=== PATIENT | male | born 1970 | race Caucasian/White ===

== ENCOUNTER 2021-06-04 12:54 | Inpatient (IN) | payer OTHER ==
[~2021-06-04] VITALS: Ht 172.7 cm; Wt 113.4 kg
[2021-06-04 14:09] LABS: HEMOGLOBIN 16.1 gm/dl (14.0-17.5); RED BLOOD COUNT 5.4 M/UL (4.20-5.50); WHITE BLOOD COUNT 6.8 K/UL (4.5-11.0)
[2021-06-04 14:37] LABS: BUN/CREATININE RATIO 21 (0-10)
[2021-06-04] MEDS ORDERED: FARXIGA10 MG PO (16:19)
[2021-06-04] MEDS ORDERED: TRADJENTA5 MG PO (16:19)
[2021-06-04] MEDS ORDERED: GLIPIZIDE10 MG PO (16:20)
[2021-06-04] MEDS ORDERED: ATENOLOL25 MG PO (16:20)
[2021-06-04] MEDS ORDERED: LOSARTAN POTASS50 MG PO (16:20)
[2021-06-04] MEDS ORDERED: METFORMIN HCL1000 MG PO (16:20)
[2021-06-04] MEDS ORDERED: ATORVASTATIN CA40 MG PO (16:20)
[2021-06-04] MEDS ORDERED: ALLERGY RELIEF25 M1 PO (16:21)
[2021-06-04] MEDS ORDERED: CHLORTHALIDONE25 MG PO (16:21)
[2021-06-04] MEDS ORDERED: VITAMIN E180 MG PO (16:22)
[2021-06-04] MEDS ORDERED: APPLE CIDER VI600 MG PO (16:23)
[2021-06-04] MEDS ORDERED: GINSENG100 MG PO (16:23)
[2021-06-05 05:31] LABS: HEMOGLOBIN 14.7 gm/dl (14.0-17.5); RED BLOOD COUNT 4.99 M/UL (4.20-5.50)
[2021-06-05 05:54] LABS: BUN/CREATININE RATIO 27 (0-10)
--- NOTE | 2021-06-05 22:27 | NUR ---
MADE CALL TO DR. HAINES ABOUT BLOOD SUGAR OF 404, NO ANSWER. WILL CALL AGAIN IN 10 MINUTES.
[2021-06-06 06:17] LABS: HEMOGLOBIN 14.5 gm/dl (14.0-17.5); RED BLOOD COUNT 4.9 M/UL (4.20-5.50); WHITE BLOOD COUNT 9.2 K/UL (4.5-11.0)
[2021-06-06 06:46] LABS: BUN/CREATININE RATIO 43 (0-10)
[2021-06-07 03:46] LABS: RED BLOOD COUNT 4.85 M/UL (4.20-5.50); WHITE BLOOD COUNT 11.5 K/UL (4.5-11.0)
[2021-06-07 04:32] LABS: BUN/CREATININE RATIO 29 (0-10)
--- NOTE | 2021-06-07 11:36 | NUR ---
PATIENT O2 SAT 88% ON ROOM AIR.
[2021-06-08 04:43] LABS: HEMOGLOBIN 13.4 gm/dl (14.0-17.5); RED BLOOD COUNT 4.72 M/UL (4.20-5.50); WHITE BLOOD COUNT 12.8 K/UL (4.5-11.0)
[2021-06-08 05:07] LABS: BUN/CREATININE RATIO 27 (0-10)
[2021-06-08] MEDS ORDERED: AUGMENTIN 875-1 EACH PO (09:36)
[2021-06-08] MEDS ORDERED: PROTONIX 40 MG40 M1 PO (09:36)
[2021-06-08] MEDS ORDERED: BUDESONIDE0.5 MG/2 M INH (09:36)
[2021-06-08] MEDS ORDERED: IPRAT-ALBUT 0.5-3 ML INH (09:36)
[2021-06-08] MEDS ORDERED: DECADRON6 MG PO (09:36)
[2021-06-08] MEDS ORDERED: AEROECLIPSE II1 EACH MC (09:46)
--- NOTE | 2021-06-08 16:15 | NUR ---
provided pulse ox and educated patient-verb and demonstrated well
== END 2021-06-08 18:31 | disposition home or self-care (01) | DRG 177 ==
LOC: ER1 12:54 → M/S 15:58 → CDU 15:58 → M/S 16:40
PROVIDERS: Internal Medicine; Physician Assistant Medical; Student in an Organized Health Care Education/Training Program; ADMIT Internal Medicine
PROC: 8E0ZXY6 Isolation (ICD-10-PCS; principal; 2021-06-04)
PROC: XW033E5 Introduction of Remdesivir Anti-infective into Peripheral Vein, Percutaneous Approach, New Technology Group 5 (ICD-10-PCS; 2021-06-04)
PROC: 3E0333Z Introduction of Anti-inflammatory into Peripheral Vein, Percutaneous Approach (ICD-10-PCS; 2021-06-04)
DX: U07.1 COVID-19 (principal); J12.82 Pneumonia due to coronavirus disease 2019; J96.01 Acute respiratory failure with hypoxia; J15.9 Unspecified bacterial pneumonia; E87.1 Hypo-osmolality and hyponatremia; E11.65 Type 2 diabetes mellitus with hyperglycemia; E78.5 Hyperlipidemia, unspecified; I10 Essential (primary) hypertension; F17.220 Nicotine dependence, chewing tobacco, uncomplicated; E66.9 Obesity, unspecified; Z82.49 Family history of ischemic heart disease and other diseases of the circulatory system; Z83.3 Family history of diabetes mellitus; Z98.890 Other specified postprocedural states; Z79.4 Long term (current) use of insulin; Z79.899 Other long term (current) drug therapy; Z68.38 Body mass index [BMI] 38.0-38.9, adult
CPT/HCPCS: 36415; 36600; 71045; 71275; 80048; 80053; 82550; 82553; 82728; 82803; 82962; 83036; 83735; 84484; 85025; 85027; 85379; 85652; 86140; 94640; 94664; 94760; 96374; 97161; 99285; J0248; J0696; J1100; J1650; J7030; Q9967; U0002